=== PATIENT | male | born 1985 | race Two or more races ===

== ENCOUNTER 2020-07-25 21:09 | Inpatient (IN) | payer OTHER ==
[~2020-07-25] VITALS: Ht 185.4 cm; Wt 157.0 kg
[2020-07-25 23:03] LABS: Basophils # (auto) 0 10 ^3/uL (0-0.2); Basophils % (auto) 0.1 % (0.0-2.0); Eosinophils # (auto) 0 10 ^3/uL (0-0.8); Hematocrit 46.3 % (41.0-53.0); Lymphocytes # (auto) 0.4 10 ^3/uL (0.4-5.4); Lymphocytes % (auto) 5.6 % (10.0-50.0); Mean Corpuscular Hemoglobin 29.3 pg (28.0-32.0); Mean Corpuscular Hgb Conc. 34.5 g/dL (32.0-36.0); Mean Corpuscular Volume 84.9 fL (80.0-100.0); Monocytes # (auto) 0.1 10 ^3/uL (0-1.3); Monocytes % (auto) 1.8 % (0.0-12.0); Neutrophils # (auto) 7.3 10 ^3/uL (1.6-8.6); Neutrophils % (auto) 92.5 % (37.0-80.0); Nucleated Red Blood Cells % 0.1 %; Platelet Count (auto) 237 10^3/uL (140-450); Red Blood Cells 5.46 10^6/uL (4.5-5.90); Red Cell Distribution Width 12.9 % (11.8-14.3); White Blood Cell 7.8 10^3/uL (4.4-10.8)
[2020-07-25 23:22] LABS: Albumin 3.2 g/dL (3.4-5.0); Anion Gap 8 (5-15); Blood Urea Nitrogen 10 mg/dL (7-18); Calcium 8.4 mg/dL (8.5-10.1); Carbon Dioxide 28 mmol/L (21-32); Chloride 94 mmol/L (98-107); Glucose 277 mg/dL (74-106); Potassium 3.5 mmol/L (3.5-5.1); Sodium 130 mmol/L (136-145)
[2020-07-25 23:24] LABS: Alanine Aminotransferase 80 U/L (16-61); Aspartate Aminotransferase 98 U/L (15-37); BUN/Creatinine Ratio 11.1; GFR African American 124 mL/min; GFR Non-African American 103 mL/min; INR 1.01 (0.9-1.15); Partial Thromboplastin Time 29.6 sec (23.0-31.2)
[2020-07-25 23:29] LABS: Alkaline Phosphatase 139 U/L (45-117); Bilirubin, Total 0.5 mg/dL (0.2-1.0); Total Protein 7.6 g/dL (6.4-8.2)
[2020-07-26] MEDS ORDERED: IOHEXOL 350 MG/ML 100ML IJ ONE (01:55)
[2020-07-26] MEDS ORDERED: IOHEXOL 300 MG/ML 100ML BOTTLE IJ ONE (01:55)
[2020-07-26] MEDS ORDERED: NITROGLYCERIN 0.4 MG SL TAB SL PRN (05:00)
[2020-07-26] MEDS ORDERED: SODIUM CHLORIDE 0.9% 500 ML IV ONE (05:00)
[2020-07-26] MEDS ORDERED: MORPHINE SULF INJ 2 MG/ML SYRINGE 1ML IV PRN (05:00)
[2020-07-26] MEDS ORDERED: ONDANSETRON HCL 4 MG/2 ML VIAL IV PRN (05:00)
[2020-07-26] MEDS ORDERED: ALBUTEROL SULF HFA 90MCG INH 200DOSE IN PRN (05:00)
[2020-07-26] MEDS ORDERED: TEMAZEPAM 15 MG CAP PO PRN (05:00)
[2020-07-26] MEDS ORDERED: ACETAMINOPHEN 500 MG TAB PO PRN (05:00)
[2020-07-26 05:40] LABS: Magnesium 2.4 mg/dL (1.6-2.6)
[2020-07-26 06:02] LABS: Lactate Dehydrogenase 1106 U/L (87-241)
[2020-07-26 06:12] LABS: CRP High Sensitivity > 19 mg/dL (< 0.3)
[2020-07-26] MEDS: AZITHROMYCIN 500MG/ 250ML 250 ML IV SCH (06:47)
[2020-07-26] MEDS ORDERED: AZITHROMYCIN 500MG/D5WorNS 250ml IV SCH (07:00)
--- NOTE | 2020-07-26 07:30 | NUR ---
Opening Shift Note Assumed care of patient, awake and alert. A/O X 4. Patient on 15L non-rebreather and 6L Oxymizer. No S/S of distress/SOB. Patient complaining of pressure in his chest that he describes hurts when he breathes. Patient reports that lying supine is more comfortable for him. Positioned accordingly, O2 saturations 93%. Skin is warm and dry. Instructed on POC and to call for assist PRN. Patient verbalized understanding. Safety measures are in place and the call light is within reach of the patient. Will continue to monitor for changes Q1hr and PRN. Addendum: 07/26/20 at 1245 by Jessica Barragan RN RN Wrong patient
--- NOTE | 2020-07-26 08:35 | NUR ---
Report called in from ER Report called in from Myrtle JORDAN. Assumed care of patient, awake and alert. Patient transferred on the floor via wheelchair at 0915. Vitals HR 86, RR 24, BP 117/72, Temp 98.7, O2 86%. Patient on 10L Oxymizer. O2 increased to 15L. No S/S of distress/SOB or pain. Instructed on POC and to call for assist PRN. Patient verbalized understanding. Safety measures are in place and the call light is within reach of the patient. Will continue to monitor for changes Q1hr and PRN.
[2020-07-26] MEDS: ASCORBIC ACID 1,000 MG TAB PO SCH (10:39)
[2020-07-26] MEDS: DexAMETHasone SOD PHOS 10MG/1ML VIAL INJ IV SCH (10:39)
[2020-07-26] MEDS: CHOLECALCIFEROL (VITD3) 2,000 UNIT CAP PO SCH (10:39)
[2020-07-26] MEDS: FAMOTIDINE 20 MG TAB PO SCH ×2 (10:39→23:32)
[2020-07-26] MEDS: ZINC SULFATE 220mg CAP or TAB PO SCH (10:39)
[2020-07-26] MEDS: ENOXAPARIN SOD 40 MG/0.4 ML SYRINGE SC SCH ×2 (10:39→23:30)
--- NOTE | 2020-07-26 14:38 | NUR ---
Patient in the ED. Addendum: 07/26/20 at 1439 by Jessica Barragan RN RN Amended: Links added.
[2020-07-26] MEDS: guaiFENesin-CODEINE Liq 5 ML UD PO PRN ×2 (16:38→23:30)
[2020-07-26 17:00] VITALS: BP 95/57
[2020-07-26] MEDS ORDERED: REMDESIVIR PER PHARMACY 0 ML IV SCH (19:30)
[2020-07-26] MEDS ORDERED: FUROSEMIDE 40 MG/4 ML VIAL IV ONE (19:45)
[2020-07-26] MEDS ORDERED: cefTRIAXone 1GM/50ML D5W 50 ML IV ONE (19:45)
[2020-07-26] MEDS ORDERED: DEXTROSE (50%) 50ML SYRG IV PRN (19:45)
[2020-07-26] MEDS: BUDESONIDE (INHALATION) 180 MCG IH IN SCH (21:01)
--- NOTE | 2020-07-26 21:03 | NUR ---
RT NOTE: FOUND PT ON FLUSHED NRB SITTING UPRIGHT ON SIDE OF BED, SPO2 83%, PT HAVING SOME SOB. PLACED PT ON HIGH FLOW NC 50LPM @100 SPO2 IMPROVED BUT PT UNABLE TO TOLERATE. STATED HE FEELS LIKE HE CANT BREATH ON IT. HFNC REMOVED AND PT PLACED IN PRON POSITION ON FLUSHED NRB SPO2 88% NOW. RN NOTIFIED.
[2020-07-26 22:00] VITALS: BP 119/67
[2020-07-26] MEDS: HYDROcodone-ACET 5/325MG TAB PO PRN (22:39)
[2020-07-26] MEDS: INSULIN LANTUS (GLARGINE) 1 /0.01ml (100units/ml) SC SCH (23:28)
[2020-07-26] MEDS: InsuLIN REG 1unit/0.01ml Soln (100units/ml) SC SCH (23:29)
[2020-07-27] MEDS: ACCU-CHEK COMFORT CURVE STRIP VI SCH ×5 (00:07→23:34)
[2020-07-27 05:00] VITALS: BP 122/83
[2020-07-27] MEDS: InsuLIN REG 1unit/0.01ml Soln (100units/ml) SC SCH ×4 (06:07→23:36)
[2020-07-27] MEDS: AZITHROMYCIN 500MG/ 250ML 250 ML IV SCH (06:08)
[2020-07-27] MEDS: guaiFENesin-CODEINE Liq 5 ML UD PO PRN ×2 (06:34→23:23)
--- NOTE | 2020-07-27 07:02 | NUR ---
closing note pt is on 15 liters non rebreather. pt is lying on his left side. no respiratory distress at this time. no c/o of pain at this time. endorsed care to day shift RN.
[2020-07-27 07:17] LABS: Basophils # (auto) 0 10 ^3/uL (0-0.2); Basophils % (auto) 0.1 % (0.0-2.0); Eosinophils # (auto) 0 10 ^3/uL (0-0.8); Eosinophils % (auto) 0.1 % (0.0-7.0); Hematocrit 45.6 % (41.0-53.0); Hemoglobin 15.7 g/dL (13.5-17.5); Lymphocytes # (auto) 0.7 10 ^3/uL (0.4-5.4); Lymphocytes % (auto) 9.7 % (10.0-50.0); Mean Corpuscular Hemoglobin 29.6 pg (28.0-32.0); Mean Corpuscular Hgb Conc. 34.5 g/dL (32.0-36.0); Mean Corpuscular Volume 85.7 fL (80.0-100.0); Monocytes # (auto) 0.3 10 ^3/uL (0-1.3); Monocytes % (auto) 4.1 % (0.0-12.0); Neutrophils # (auto) 6.2 10 ^3/uL (1.6-8.6); Nucleated Red Blood Cells % 0.1 %; Platelet Count (auto) 318 10^3/uL (140-450); Red Blood Cells 5.32 10^6/uL (4.5-5.90); Red Cell Distribution Width 13.2 % (11.8-14.3); White Blood Cell 7.2 10^3/uL (4.4-10.8)
[2020-07-27 07:23] LABS: Albumin 2.6 g/dL (3.4-5.0); Potassium 3.3 mmol/L (3.5-5.1)
[2020-07-27 07:31] LABS: BUN/Creatinine Ratio 14.3; Bilirubin, Total 0.6 mg/dL (0.2-1.0); Calcium 8.3 mg/dL (8.5-10.1); Total Protein 7.3 g/dL (6.4-8.2)
[2020-07-27] MEDS: HYDROcodone-ACET 5/325MG TAB PO PRN ×2 (08:00→20:02)
--- NOTE | 2020-07-27 08:35 | NUR ---
Opening Shift Note Assumed care of patient, awake and alert. A/O X 4. Patient on 15L non-rebreather. O2 sats 85-89%. Patient put on 6L Oxymizer. Patient complains of chest pain when he coughs and is requesting pain medication at this time. Instructed on POC and to call for assist PRN. Patient verbalized understanding. Safety measures are in place and the call light is within reach of the patient. Will continue to monitor for changes Q1hr and PRN.
[2020-07-27 09:00] VITALS: BP 138/82
[2020-07-27] MEDS: ENOXAPARIN SOD 40 MG/0.4 ML SYRINGE SC SCH (09:45)
[2020-07-27] MEDS: DexAMETHasone SOD PHOS 10MG/1ML VIAL INJ IV SCH (09:45)
[2020-07-27] MEDS: FAMOTIDINE 20 MG TAB PO SCH ×2 (09:47→22:00)
[2020-07-27] MEDS: ZINC SULFATE 220mg CAP or TAB PO SCH (09:47)
[2020-07-27] MEDS: ASCORBIC ACID 1,000 MG TAB PO SCH (09:48)
[2020-07-27] MEDS: CHOLECALCIFEROL (VITD3) 2,000 UNIT CAP PO SCH (09:48)
[2020-07-27] MEDS: BUDESONIDE (INHALATION) 180 MCG IH IN SCH ×2 (10:00→21:37)
[2020-07-27] MEDS ORDERED: FUROSEMIDE 40 MG/4 ML VIAL IV SCH (10:00)
[2020-07-27] MEDS: INSULIN LANTUS (GLARGINE) 1 /0.01ml (100units/ml) SC SCH ×2 (10:00→23:36)
[2020-07-27] MEDS ORDERED: REMDESIVIR PER PHARMACY 0 ML IV SCH (11:30)
--- NOTE | 2020-07-27 12:30 | NUR ---
Dr. Anthony at bedside Dr. Anthony at bedside discussing the POC with the patient. All questions and concerns were answered at this time.
[2020-07-27] MEDS ORDERED: DOXYCYCLINE 100 MG TAB/CAP PO ONE (12:45)
[2020-07-27] MEDS ORDERED: POTASSIUM CHL 20 Meq TABLET PO ONE (12:45)
[2020-07-27] MEDS ORDERED: diphenhdrAMINE HCL 50 MG/1 ML VL IV PRN (12:45)
[2020-07-27 13:00] VITALS: BP 113/70
[2020-07-27] MEDS: PIPERACILLIN-TAZO 4.5GM 100 ML IV SCH (13:30)
[2020-07-27] MEDS ORDERED: diphenhdrAMINE HCL 50 MG/1 ML VL IV SCH (14:30)
[2020-07-27] MEDS ORDERED: ACETAMINOPHEN 650 mg PER 20.3 mL UD PO SCH (14:30)
[2020-07-27] MEDS ORDERED: methylPREDNISolone SOD SUCC 40 MG/ML VL IV SCH (14:30)
[2020-07-27] MEDS ORDERED: TOCILIZUMAB 400 MG in SODIUM CHL 0.9% 80 ML IV SCH (15:00)
[2020-07-27] MEDS ORDERED: REMDESIVIR 200 MG in NS 210ml LOADING DOSE ADULT IV ONE (15:00)
--- NOTE | 2020-07-27 16:08 | NUR ---
Patient unable to tolerate. Addendum: 07/27/20 at 1608 by Jessica Barragan RN RN Amended: Links added.
[2020-07-27 17:00] VITALS: BP 113/73
[2020-07-27 21:40] VITALS: BP 134/71
[2020-07-27 22:00] VITALS: BP 134/71
[2020-07-27] MEDS ORDERED: cefTRIAXone 1GM/50ML D5W 50 ML IV SCH (22:00)
[2020-07-27] MEDS ORDERED: DOXYCYCLINE 100 MG TAB/CAP PO SCH (22:00)
[2020-07-27] MEDS ORDERED: FAMOTIDINE (10MG/ML) 2ML VL IV SCH (22:00)
[2020-07-27] MEDS ORDERED: ENOXAPARIN SOD 150 MG/1 ML SYRINGE SC SCH (22:00)
--- NOTE | 2020-07-27 23:00 | NUR ---
REMDEZIVIR COMPLETE VITALS PRE-BP-123/56, HR-111 15 MIN-120/80, HR-115 POST-125/72, 116
[2020-07-28] MEDS: PIPERACILLIN-TAZO 4.5GM 100 ML IV SCH ×2 (01:30→06:53)
[2020-07-28] MEDS: HYDROcodone-ACET 5/325MG TAB PO PRN (02:26)
[2020-07-28 05:00] VITALS: BP 111/87
--- NOTE | 2020-07-28 05:30 | NUR ---
PT REFUSING HIGH FLOW OXYGEN AN BIPAP. pt is on 15 liters oxymizer and 15 liters non rebreather. o2 saturation is 83%.
[2020-07-28] MEDS: InsuLIN REG 1unit/0.01ml Soln (100units/ml) SC SCH (07:05)
[2020-07-28] MEDS: ACCU-CHEK COMFORT CURVE STRIP VI SCH (07:05)
--- NOTE | 2020-07-28 07:28 | NUR ---
closing note pt is on 15 liters oxymizer and 15 liters non rebreather. pt continues to refuse high flow oxygen and bipap. no respiratory distress noted at this time. o2 saturation is 82%. endorsed care to day shift RN.
--- NOTE | 2020-07-28 07:40 | NUR ---
Code Blue note. Please see CODE sheets and Provider/MD notes regarding patient code. Family notified of code blue and updated on patient status post code.
--- NOTE | 2020-07-28 07:55 | NUR ---
NN LATE ENTRY 07/28/20 0755: REPORT AND CARE RECEIVED FROM FLOW TRADER NURSE AT THIS TIME. FLOW TRADER RN UPDATED PATIENT'S NEXT OF KIN OF STATUS. ALL QUESTIONS ANSWERED.
--- NOTE | 2020-07-28 08:36 | NUR ---
CALLED THE [facility]. AWAITING A CALL BACK.
--- NOTE | 2020-07-28 08:44 | NUR ---
CALLED [facility]. PATIENT IS NOT ELIGIBLE FOR ANY DONATIONS. CASE #[id number].
--- NOTE | 2020-07-28 09:43 | NUR ---
[employer] CALLED BACK AND THE CASE WAS REVIEWED AND RELEASED PER ELI CAVANAUGH. CASE NUMBER NOT NEEDED.
[2020-07-28] MEDS ORDERED: POTASSIUM CHL 20 Meq TABLET PO SCH (10:00)
[2020-07-28] MEDS ORDERED: EPINEPHrine HCL 1 MG/10 ML SYRG IV ONE (12:15)
--- NOTE | 2020-07-28 12:34 | NUR ---
PATIENT TAKEN TO [facility] PER FAMILY'S REQUEST. NEXT OF KIN MARC HOBBS SIGNED ALL PAPERWORK TO RELEASE PATIENT AND WAS GIVEN PATIENT'S VALUABLES AND MEDICATIONS. ALL QUESTIONS/CONCERNS ADDRESSED.
[2020-07-28] MEDS ORDERED: REMDESIVIR 100 MG in SODIUM CHL 0.9% 250 ML IV SCH (15:00)
== END 2020-07-28 12:36 | DRG 871 ==
LOC: ER 21:22 → TELE 21:23 → TELE-WESTW 07-26 09:32
PROVIDERS: ADMIT Nurse Practitioner; ATTEND Internal Medicine Nephrology
PROC: XW033E5 Introduction of Remdesivir Anti-infective into Peripheral Vein, Percutaneous Approach, New Technology Group 5 (ICD-10-PCS; principal; 2020-07-26)
DX: A41.89 Other specified sepsis (principal); U07.1 COVID-19; J96.01 Acute respiratory failure with hypoxia; J12.89 Other viral pneumonia; Z68.42 Body mass index [BMI] 45.0-49.9, adult; J98.11 Atelectasis; R65.20 Severe sepsis without septic shock; E11.65 Type 2 diabetes mellitus with hyperglycemia; E66.01 Morbid (severe) obesity due to excess calories
CPT/HCPCS: 36415; 36600; 71045; 71275; 80053; 82728; 82805; 82962; 83036; 83605; 83615; 83735; 83880; 84443; 84484; 85025; 85379; 85610; 85730; 86141; 86850; 86900; 86901; 87426; 94640; G0378; J0696; J1100; J1815; J2543; J3490